=== PATIENT | female | born 1930 | race African-American/Black ===

== ENCOUNTER 2017-11-03 11:36 | Inpatient (IN) ==
[2017-11-03] MEDS ORDERED: ONDANSETRON 4 MG/2 ML VIAL ONE (12:19)
[2017-11-03] MEDS ORDERED: ONDANSETRON 4 MG/2 ML VIAL IV STA (12:32)
[2017-11-03] MEDS ORDERED: SODIUM CHLORIDE 0.9% 500 ML IV STA (12:50)
[2017-11-03 13:49] LABS: Apearance,Urine CLEAR (Clear); Bilirubin,Urine Negative (Negative); Blood, Urine Negative (Negative); Glucose,Urine (UA) Negative (Negative); Ketones,Urine Negative (Negative); Nitrite,Urine Negative (Negative); Protein,Urine Negative; RBC,Urine <1 /HPF (0-4); Squamous Epithelial Cell,Urine Occasional /HPF (0-10); Urine Color Straw (Yellow); Urine Specific Gravity 1.003 (1.001-1.035); Urine Urobilinogen < 2.0 EU/DL (0.2-1.0); WBC,Urine 1 /HPF (0-6)
[2017-11-03 13:52] LABS: Basophils % 0.9 % (0.0-0.8); Eosinophils % 0.5 % (0.00-10.9); Hematocrit 23.4 VOL% (35.7-47.0); Hemoglobin 8.2 GM/DL (12.0-16.0); Immature Granulocytes % 0.2 %; Immature Granulocytes Absolute 0.01 #; Lymphocytes # 1.6 10*3/uL (1.4-4.0); Lymphocytes % 36.9 % (21.3-54.2); Mean Corpuscular Hemoglobin 31 PG (27-34); Mean Corpuscular Volume 88.6 FL (87-102); Mean Platelet Volume 10.8 FL (9.6-12.0); Monocytes # 0.3 10*3/uL (0.11-0.8); Monocytes % 7.4 % (1.7-12.7); Neutrophils # 2.3 10*3/uL (1.4-7.4); Neutrophils % 54.1 % (38.7-73.9); Platelet Count 198 T/CUMM (130-400); Red Blood Count 2.64 MC/CUMM (3.8-5.5); Red Cell Distribution Width 16.8 % (9.3-17.3); White Blood Count 4.3 T/CUMM (4-12)
[2017-11-03 14:05] LABS: Albumin 3.4 G/DL (3.4-5.0); Bilirubin,Total 0.6 MG/DL (0.2-1.0); Calcium 9.3 MG/DL (8.5-10.1); Potassium 3.4 MMOL/L (3.5-5.1); Total Protein 7.8 G/DL (6.4-8.3)
[2017-11-03 14:06] LABS: Troponin I < 0.015 NG/ML (0.00-0.045)
[2017-11-03] MEDS ORDERED: MAGNESIUM SULF RIDER 2 GM in PREMIX 1 EACH IV STA (14:25)
[2017-11-03] MEDS ORDERED: DOCUSATE SODIUM 100 MG CAPSULE PO PRN (15:38)
[2017-11-03] MEDS ORDERED: guaiFENesin/DM ER 600-30 MG TABLET PO PRN (15:38)
[2017-11-03] MEDS ORDERED: HYOSCYAMINE 0.125 MG TABLET SL PRN (15:53)
[2017-11-03] MEDS ORDERED: LORazepam 0.5 MG TABLET PO PRN (15:53)
[2017-11-03] MEDS ORDERED: traMADol 50 MG TABLET PO PRN (15:53)
[2017-11-03] MEDS ORDERED: ALBUTEROL/IPRATROPIUM 3 ML NEB RESP TX PRN (16:26)
[2017-11-03] MEDS: oxyCODONE IR 5 MG TABLET PO SCH ×3 (19:04→23:19)
[2017-11-03] MEDS: SODIUM CHLORIDE 0.9% 1,000 ML IV SCH (19:19)
[2017-11-03] MEDS: ONDANSETRON 4 MG/2 ML VIAL IV PRN (20:38)
[2017-11-03] MEDS: PANTOPRAZOLE 40 MG TABLET PO SCH (22:33)
[2017-11-03] MEDS: MAGNESIUM OXIDE 400 MG TABLET PO SCH (22:33)
[2017-11-03] MEDS: ENOXAPARIN 30 MG/0.3 ML SYRINGE SUBCUT SCH (22:33)
[2017-11-03] MEDS: FLUCONAZOLE 100 MG TABLET PO SCH (22:33)
[2017-11-03] MEDS: traZODone 50 MG TABLET PO PRN (22:37)
[2017-11-03] MEDS: ALBUTEROL/IPRATROPIUM 3 ML NEB RESP TX SCH ×2 (23:20→23:35)
[2017-11-04] MEDS: ALBUTEROL/IPRATROPIUM 3 ML NEB RESP TX SCH ×6 (03:49→22:49)
[2017-11-04] MEDS: oxyCODONE IR 5 MG TABLET PO SCH ×6 (04:33→23:21)
[2017-11-04 05:38] LABS: Basophils % 0.9 % (0.0-0.8); Eosinophils % 0.7 % (0.00-10.9); Hematocrit 23.3 VOL% (35.7-47.0); Hemoglobin 8.3 GM/DL (12.0-16.0); Immature Granulocytes % 0.2 %; Immature Granulocytes Absolute 0.01 #; Lymphocytes # 1.6 10*3/uL (1.4-4.0); Lymphocytes % 35.2 % (21.3-54.2); Mean Corpuscular HGB Conc 35.6 GM/DL (32-36); Mean Corpuscular Hemoglobin 31 PG (27-34); Mean Corpuscular Volume 86.6 FL (87-102); Mean Platelet Volume 10.1 FL (9.6-12.0); Monocytes # 0.4 10*3/uL (0.11-0.8); Monocytes % 8.1 % (1.7-12.7); Neutrophils # 2.5 10*3/uL (1.4-7.4); Neutrophils % 54.9 % (38.7-73.9); Platelet Count 204 T/CUMM (130-400); Red Blood Count 2.69 MC/CUMM (3.8-5.5); Red Cell Distribution Width 16.8 % (9.3-17.3); White Blood Count 4.6 T/CUMM (4-12)
[2017-11-04 06:07] LABS: % Iron Saturation 29.6 % (18-50); Ferritin 496.4 ng/ml (8-252)
[2017-11-04 06:11] LABS: Calcium 8.5 MG/DL (8.5-10.1); Osmolality,Calculated 275.5 MOS/KG (273-304); Potassium 2.9 MMOL/L (3.5-5.1); Thyroid Stimulating Hormone 1.49 uIU/ml (0.358-3.74)
[2017-11-04] MEDS: SODIUM CHLORIDE 0.9% 1,000 ML IV SCH ×2 (06:20→21:48)
[2017-11-04] MEDS ORDERED: PREGABALIN 25 MG CAPSULE PO SCH (09:00)
[2017-11-04] MEDS: MAGNESIUM OXIDE 400 MG TABLET PO SCH ×2 (09:41→21:05)
[2017-11-04] MEDS: POTASSIUM CHLORIDE 20 MEQ TABLET PO SCH (09:41)
[2017-11-04] MEDS: PANTOPRAZOLE 40 MG TABLET PO SCH ×2 (09:41→21:05)
[2017-11-04] MEDS: amLODIPine 5 MG TABLET PO SCH (09:41)
[2017-11-04] MEDS: FLUCONAZOLE 100 MG TABLET PO SCH (09:48)
[2017-11-04] MEDS ORDERED: POTASSIUM CHLORIDE 20 MEQ TABLET PO ONE (11:28)
[2017-11-04] MEDS ORDERED: SODIUM CHLORIDE 0.9% 1,000 ML IV PRN (12:11)
[2017-11-04] MEDS: ONDANSETRON 4 MG/2 ML VIAL IV PRN (21:10)
[2017-11-04] MEDS ORDERED: PREGABALIN 25 MG CAPSULE PO ONE (21:30)
[2017-11-04] MEDS: traZODone 50 MG TABLET PO PRN (21:50)
[2017-11-04] MEDS: ENOXAPARIN 30 MG/0.3 ML SYRINGE SUBCUT SCH (21:53)
[2017-11-05 01:57] LABS: Basophils % 0.5 % (0.0-0.8); Eosinophils # 0.1 10*3/uL (0.0-0.87); Eosinophils % 1.4 % (0.00-10.9); Hematocrit 25.6 VOL% (35.7-47.0); Hemoglobin 9.1 GM/DL (12.0-16.0); Immature Granulocytes % 0.2 %; Immature Granulocytes Absolute 0.01 #; Lymphocytes # 1.4 10*3/uL (1.4-4.0); Lymphocytes % 31.7 % (21.3-54.2); Mean Corpuscular HGB Conc 35.5 GM/DL (32-36); Mean Corpuscular Hemoglobin 31 PG (27-34); Mean Corpuscular Volume 86.5 FL (87-102); Mean Platelet Volume 9.7 FL (9.6-12.0); Monocytes # 0.5 10*3/uL (0.11-0.8); Monocytes % 10.3 % (1.7-12.7); Neutrophils # 2.5 10*3/uL (1.4-7.4); Neutrophils % 55.9 % (38.7-73.9); Platelet Count 177 T/CUMM (130-400); Red Blood Count 2.96 MC/CUMM (3.8-5.5); White Blood Count 4.4 T/CUMM (4-12)
[2017-11-05 02:23] LABS: Calcium 8.5 MG/DL (8.5-10.1); Osmolality,Calculated 279.3 MOS/KG (273-304)
[2017-11-05] MEDS: oxyCODONE IR 5 MG TABLET PO SCH ×6 (03:44→20:57)
[2017-11-05] MEDS: ALBUTEROL/IPRATROPIUM 3 ML NEB RESP TX SCH ×6 (03:45→23:40)
[2017-11-05] MEDS: ONDANSETRON 4 MG/2 ML VIAL IV PRN ×3 (06:34→18:47)
[2017-11-05] MEDS: POTASSIUM CHLORIDE 20 MEQ TABLET PO SCH ×3 (10:25→13:02)
[2017-11-05] MEDS: MAGNESIUM OXIDE 400 MG TABLET PO SCH ×2 (10:25→20:57)
[2017-11-05] MEDS: amLODIPine 5 MG TABLET PO SCH (10:26)
[2017-11-05] MEDS: FLUCONAZOLE 100 MG TABLET PO SCH (10:26)
[2017-11-05] MEDS: PANTOPRAZOLE 40 MG TABLET PO SCH ×2 (10:26→20:57)
[2017-11-05] MEDS ORDERED: fentaNYL 12 MCG/HR PATCH TRANSDERM SCH (12:00)
[2017-11-05] MEDS ORDERED: LIDOCAINE/PRILOCAINE CREAM 5 GM TUBE TOP ONE (12:00)
[2017-11-05] MEDS: SODIUM CHLORIDE 0.9% 1,000 ML IV SCH (18:52)
[2017-11-05] MEDS: ENOXAPARIN 30 MG/0.3 ML SYRINGE SUBCUT SCH (20:59)
[2017-11-05] MEDS ORDERED: PREGABALIN 25 MG CAPSULE PO SCH (21:00)
[2017-11-06] MEDS: oxyCODONE IR 5 MG TABLET PO SCH ×4 (02:09→14:24)
[2017-11-06] MEDS: ALBUTEROL/IPRATROPIUM 3 ML NEB RESP TX SCH ×3 (02:45→10:58)
[2017-11-06 08:17] LABS: Calcium 8.7 MG/DL (8.5-10.1); Osmolality,Calculated 277.3 MOS/KG (273-304); Potassium 4.1 MMOL/L (3.5-5.1)
[2017-11-06] MEDS ORDERED: MAGNESIUM SULF RIDER 2 GM in PREMIX 1 EACH IV PRN (08:41)
[2017-11-06] MEDS ORDERED: MAGNESIUM SULF RIDER 4 GM in PREMIX 1 EACH IV PRN (08:41)
[2017-11-06] MEDS: ONDANSETRON 4 MG/2 ML VIAL IV PRN (08:53)
[2017-11-06] MEDS: SODIUM CHLORIDE 0.9% 1,000 ML IV SCH (08:58)
[2017-11-06] MEDS: PANTOPRAZOLE 40 MG TABLET PO SCH (09:57)
[2017-11-06] MEDS: POTASSIUM CHLORIDE 20 MEQ TABLET PO SCH (09:57)
[2017-11-06] MEDS: amLODIPine 5 MG TABLET PO SCH (09:57)
[2017-11-06] MEDS: MAGNESIUM OXIDE 400 MG TABLET PO SCH (09:57)
[2017-11-06 11:51] VITALS: BP 138/63
== END 2017-11-06 13:15 | disposition home health service (06) | DRG 812 ==
LOC: N.ED 11:36 → N.EDINP 15:24 → N.4E 16:28
PROVIDERS: ADMIT Internal Medicine; ATTEND Internal Medicine

== ENCOUNTER 2017-12-18 10:43 | Inpatient (IN) ==
[2017-12-18] MEDS ORDERED: SODIUM CHLORIDE 0.9% 1,000 ML IV STA (11:11)
[2017-12-18 11:39] LABS: Basophils # 0.1 10*3/uL (0.0-0.2); Basophils % 0.8 % (0.0-0.8); Eosinophils # 0.1 10*3/uL (0.0-0.87); Eosinophils % 0.8 % (0.00-10.9); Hematocrit 29.3 VOL% (35.7-47.0); Hemoglobin 9.9 GM/DL (12.0-16.0); Immature Granulocytes % 0.4 %; Immature Granulocytes Absolute 0.05 #; Lymphocytes # 1.5 10*3/uL (1.4-4.0); Lymphocytes % 11.8 % (21.3-54.2); Mean Corpuscular HGB Conc 33.8 GM/DL (32-36); Mean Corpuscular Hemoglobin 32 PG (27-34); Mean Corpuscular Volume 95.8 FL (87-102); Mean Platelet Volume 9.5 FL (9.6-12.0); Monocytes # 1.1 10*3/uL (0.11-0.8); Monocytes % 8.6 % (1.7-12.7); Neutrophils # 9.6 10*3/uL (1.4-7.4); Neutrophils % 77.6 % (38.7-73.9); Platelet Count 336 T/CUMM (130-400); Red Blood Count 3.06 MC/CUMM (3.8-5.5); Red Cell Distribution Width 15.9 % (9.3-17.3); White Blood Count 12.3 T/CUMM (4-12)
[2017-12-18 12:05] LABS: Albumin 3.7 G/DL (3.4-5.0); Bilirubin,Total 0.5 MG/DL (0.2-1.0); Calcium 9.8 MG/DL (8.5-10.1); Osmolality,Calculated 275.8 MOS/KG (273-304); Potassium 3.8 MMOL/L (3.5-5.1); Total Protein 9.9 G/DL (6.4-8.3)
[2017-12-18] MEDS ORDERED: hydrALAZINE 20 MG/1 ML VIAL ONE (12:16)
[2017-12-18] MEDS ORDERED: hydrALAZINE 20 MG/1 ML VIAL IV STA (12:21)
[2017-12-18 12:23] LABS: Apearance,Urine CLEAR (Clear); Bilirubin,Urine Negative (Negative); Blood, Urine Negative (Negative); Glucose,Urine (UA) Negative (Negative); Ketones,Urine Negative (Negative); Nitrite,Urine Negative (Negative); Protein,Urine Negative; RBC,Urine 1 /HPF (0-4); Squamous Epithelial Cell,Urine Occasional /HPF (0-10); Urine Color Yellow (Yellow); Urine Specific Gravity 1.009 (1.001-1.035); Urine Urobilinogen < 2.0 EU/DL (0.2-1.0); WBC,Urine 1 /HPF (0-6)
[2017-12-18] MEDS ORDERED: DEXAMETHASONE 10 MG/1 ML VIAL IV STA (12:36)
[2017-12-18] MEDS ORDERED: HYDROmorphone 2 MG/1 ML VIAL IV STA (12:47)
[2017-12-18] MEDS ORDERED: ONDANSETRON 4 MG/2 ML VIAL IV STA (12:47)
[2017-12-18] MEDS ORDERED: ONDANSETRON 4 MG/2 ML VIAL IV PRN (13:23)
[2017-12-18] MEDS ORDERED: PROMETHAZINE 25 MG/1 ML VIAL IM PRN (13:23)
[2017-12-18] MEDS ORDERED: HYDROmorphone 2 MG/1 ML VIAL IV PRN (13:33)
[2017-12-18] MEDS ORDERED: ENOXAPARIN 40 MG/0.4 ML SYRINGE SUBCUT SCH (14:00)
[2017-12-18] MEDS ORDERED: INFLUENZA VIRUS VACCINE 0.5 ML SYRINGE IM ONE (16:01)
[2017-12-18] MEDS: POTASSIUM CHLORIDE INJ 10 MEQ in DEXTROSE 5% NACL 0.9% 1,000 ML IV SCH (17:01)
[2017-12-18] MEDS: DEXAMETHASONE 4 MG/1 ML VIAL IV SCH ×2 (17:01→21:52)
[2017-12-19 04:33] LABS: Basophils % 0.1 % (0.0-0.8); Hematocrit 23.8 VOL% (35.7-47.0); Hemoglobin 7.9 GM/DL (12.0-16.0); Immature Granulocytes % 0.4 %; Immature Granulocytes Absolute 0.03 #; Lymphocytes # 0.6 10*3/uL (1.4-4.0); Lymphocytes % 8.7 % (21.3-54.2); Mean Corpuscular HGB Conc 33.2 GM/DL (32-36); Mean Corpuscular Hemoglobin 31 PG (27-34); Mean Corpuscular Volume 94.4 FL (87-102); Mean Platelet Volume 9.7 FL (9.6-12.0); Monocytes # 0.1 10*3/uL (0.11-0.8); Monocytes % 1.4 % (1.7-12.7); Neutrophils # 6.3 10*3/uL (1.4-7.4); Neutrophils % 89.4 % (38.7-73.9); Platelet Count 305 T/CUMM (130-400); Red Blood Count 2.52 MC/CUMM (3.8-5.5); Red Cell Distribution Width 15.8 % (9.3-17.3)
[2017-12-19] MEDS: DEXAMETHASONE 4 MG/1 ML VIAL IV SCH ×4 (04:49→22:01)
[2017-12-19 04:54] LABS: Albumin 3.3 G/DL (3.4-5.0); Bilirubin,Total 0.6 MG/DL (0.2-1.0); Osmolality,Calculated 288.1 MOS/KG (273-304); Potassium 3.4 MMOL/L (3.5-5.1); Total Protein 8.5 G/DL (6.4-8.3)
[2017-12-19] MEDS: POTASSIUM CHLORIDE INJ 10 MEQ in DEXTROSE 5% NACL 0.9% 1,000 ML IV SCH (06:25)
[2017-12-19] MEDS: hydrALAZINE 20 MG/1 ML VIAL IV PRN (17:13)
[2017-12-20] MEDS: POTASSIUM CHLORIDE INJ 10 MEQ in DEXTROSE 5% NACL 0.9% 1,000 ML IV SCH ×3 (02:22→21:18)
[2017-12-20] MEDS: DEXAMETHASONE 4 MG/1 ML VIAL IV SCH ×4 (04:09→21:08)
[2017-12-20] MEDS: hydrALAZINE 20 MG/1 ML VIAL IV PRN ×2 (16:35→21:06)
[2017-12-21] MEDS: hydrALAZINE 20 MG/1 ML VIAL IV PRN ×4 (01:06→21:49)
[2017-12-21] MEDS: DEXAMETHASONE 4 MG/1 ML VIAL IV SCH ×4 (03:55→21:50)
[2017-12-21] MEDS ORDERED: INFLUENZA VIRUS VACCINE 0.5 ML SYRINGE IM ONE (06:49)
[2017-12-21] MEDS: POTASSIUM CHLORIDE INJ 10 MEQ in DEXTROSE 5% NACL 0.9% 1,000 ML IV SCH (06:59)
[2017-12-21] MEDS ORDERED: fentaNYL 12 MCG/HR PATCH TRANSDERM SCH (09:00)
[2017-12-21] MEDS ORDERED: LACTULOSE 20 GM/30 ML UDCUP PO PRN (13:50)
[2017-12-21] MEDS ORDERED: BISACODYL 10 MG SUPP RECTAL PRN (19:25)
[2017-12-22] MEDS: DEXAMETHASONE 4 MG/1 ML VIAL IV SCH ×2 (06:32→09:51)
[2017-12-22] MEDS: hydrALAZINE 20 MG/1 ML VIAL IV PRN (06:33)
[2017-12-22 11:49] VITALS: BP 162/79
== END 2017-12-22 14:52 | disposition home health service (06) | DRG 54 ==
LOC: EDUNIT# → EDBD → N.ED 10:43 → SUATTDRO 13:23 → N.EDINP 13:23 → N.4E 15:41 → N.2E 12-22 14:59 → N.4E 12-23 07:11
PROVIDERS: ADMIT Internal Medicine; ATTEND Internal Medicine